=== PATIENT | female | born 1985 | race Caucasian/White ===

== ENCOUNTER 2017-02-10 13:57 | Emergency (ER) | payer OTHER ==
[~2017-02-10] VITALS: Ht 165.1 cm; Wt 62.1 kg
[~2017-02-10 13:57] MED LIST: ABILIFY5 MG PO; ACETAMINOPHEN500 MG PO; BENADRYL25 MG PO; BENTYL10 MG PO; CIPRO500 MG PO; DAILY VALUE1 EACH PO; DONNATAL1 TABLET PO; FIORICET WI1 CAPSULE PO; FLEXERIL5 MG PO; IMITREX50 MG PO; KEFLEX500 MG PO; KEPPRA; KEPPRA500 MG PO; Keppra PO; LAMICTAL25 MG PO; LEVETIRACETAM500 MG PO; Levaquin PO; MOTRIN600 MG PO; MULTI-VITAMIN1 EAC3 PO; NAPROXEN500 MG PO; NOHOMEMEDS; PERCOCET 5/31 TABLET PO; PROMETHAZINE HC25 M1 PO; PYRIDIUM200 MG PO; RANITIDINE HCL300 MG PO; STRATTERA40 MG PO; STRATTERA60 MG; TESSALON200 MG PO; VICODIN,LORT1 TABLET PO; VISTARIL50 MG PO; ZOFRAN4 MG PO; ZYPREXA10 MG PO
[2017-02-10 14:25] LABS: POINT-OF-CARE METER ID UU13113778
[2017-02-10 15:16] LABS: MCH 28.5 PG (29.0-34.0); MCHC 32.1 G/DL (30.0-36.0); MCV 88.8 FL (83-99); MEAN PLAT.VOLUME 10.4 uM^3 (9.5-12.4); PLATELET COUNT 229 K/uL (156-360); RBC DIS.WIDTH-CV 12.5 % (11.8-14.6); RBC DIS.WIDTH-SD 41.1 % (39-53); RED BLOOD COUNT 4.73 M/uL (3.80-5.20); WHITE BLOOD COUNT 12.6 K/uL (4.1-10.2)
[2017-02-10 15:28] LABS: CHLORIDE 106 mEq/L (99-109); POTASSIUM 3.9 mEq/L (3.7-5.4); SODIUM 140 mEq/L (136-147)
[2017-02-10 15:30] LABS: GLUCOSE 203 mg/dL (70-99)
[2017-02-10 15:31] LABS: ANION GAP 14 MEQ/L (2-14)
[2017-02-10 15:32] LABS: TOTAL BILIRUBIN 0.9 mg/dL (0.0-1.0)
[2017-02-10 15:33] LABS: ALKALINE PHOSPHATASE 60 IU/L (3-129)
[2017-02-10 15:34] LABS: GFR ESTIMATE (CALCULATED) > 59 mL/min/
[2017-02-10 15:35] LABS: UREA NITROGEN (BUN) 9 mg/dL (9-23)
[2017-02-10 15:43] LABS: QUANTITATIVE HCG < 4.0 MIU/ML
[2017-02-10] MEDS ORDERED: IMITREX25 MG PO (17:04)
[2017-02-10] MEDS ORDERED: REGLAN10 MG PO (17:04)
[2017-02-10 17:05] LABS: ADD MIUA? NO; BILIRUBIN NEGATIVE; BLOOD NEGATIVE; COLOR YELLOW ((YELLOW)); GLUCOSE (STRIP) >=500; KETONES 80; LEUKOCYTES NEGATIVE; NITRITE NEGATIVE; PROTEIN (STRIP) 30; SPECIFIC GRAVITY 1.018 (1.000-1.030); UCUL ADDED? NO; UROBILINOGEN 0.2 MG/DL (0.2-1.0)
[2017-02-10 17:26] LABS: AMPHETAMINE NEGATIVE (500 ng/mL); BARBITURATES NEGATIVE (200 ng/mL); BENZODIAZEPINES NEGATIVE (150 ng/mL); COCAINE NEGATIVE (150 ng/mL); INTERNAL CONTROLS VALID? YES; METHADONE NEGATIVE (200 ng/mL); METHAMPHETAMINE NEGATIVE (500 ng/mL); OPIATES (MORPHINE) NEGATIVE (100 ng/mL); OXYCODONE NEGATIVE (100 ng/mL); PHENCYCLIDINE NEGATIVE (25 ng/mL); PROPOXYPHENE NEGATIVE (300 ng/mL); THC CANNABINOIDS PRESUMPTIVE POSITIVE (50 ng/mL); TRICYCLIC ANTIDEPRESSANTS NEGATIVE (300 ng/mL)
[2017-02-10 17:27] LABS: ADD MEDTOX COMMENT Y
[2017-02-10 18:30] VITALS: BP 138/79
== END 2017-02-10 18:49 | disposition home or self-care (01) ==
LOC: EME 13:57
PROVIDERS: Emergency Medicine
DX: G43.909 Migraine, unspecified, not intractable, without status migrainosus (principal); R56.9 Unspecified convulsions; F12.90 Cannabis use, unspecified, uncomplicated; F17.200 Nicotine dependence, unspecified, uncomplicated
CPT/HCPCS: 80053; 81003; 82948; 84702; 84999; 85027; 99281; 99285; J1630; J3030; J7030

== ENCOUNTER 2017-04-11 11:59 | Emergency (ER) | payer OTHER ==
[~2017-04-11] VITALS: Ht 165.1 cm; Wt 50.0 kg
[~2017-04-11 11:59] MED LIST changes: +IMITREX25 MG PO; +REGLAN10 MG PO
[2017-04-11 12:58] LABS: EOSINOPHIL (%) 0 % (0-5); HEMATOCRIT 41.7 % (36.0-46.0); IMMATURE GRANULOCYTE (%) 0.4 % (0.0-0.7); IMMATURE GRANULOCYTE COUNT 0.1 K/uL; INSTRUMENT ABS NEUTROPHIL CT 12.4 K/uL; LYMPHOCYTE COUNT 0.9 K/uL (1.0-2.8); MCH 28.8 PG (29.0-34.0); MCHC 33.6 G/DL (30.0-36.0); MCV 85.8 FL (83-99); MEAN PLAT.VOLUME 10.4 uM^3 (9.5-12.4); MONOCYTE COUNT 0.6 K/uL (0-0.8); NEUTROPHIL COUNT 12.4 K/uL (1.8-6.4); PLATELET COUNT 215 K/uL (156-360); RBC DIS.WIDTH-CV 12.1 % (11.8-14.6); RBC DIS.WIDTH-SD 38.2 % (39-53); RED BLOOD COUNT 4.86 M/uL (3.80-5.20); WHITE BLOOD COUNT 13.9 K/uL (4.1-10.2)
[2017-04-11 13:02] LABS: CHLORIDE 108 mEq/L (99-109); POTASSIUM 3.5 mEq/L (3.7-5.4); SODIUM 139 mEq/L (136-147)
[2017-04-11 13:05] LABS: GLUCOSE 170 mg/dL (70-99)
[2017-04-11 13:06] LABS: ANION GAP 16 MEQ/L (2-14)
[2017-04-11 13:07] LABS: TOTAL BILIRUBIN 0.7 mg/dL (0.0-1.0)
[2017-04-11 13:08] LABS: ALKALINE PHOSPHATASE 54 IU/L (3-129); GFR ESTIMATE (CALCULATED) > 59 mL/min/
[2017-04-11 13:09] LABS: UREA NITROGEN (BUN) 11 mg/dL (9-23)
[2017-04-11 13:14] LABS: D-DIMER ELISA 0.28 mg/L FEU (< 0.57)
[2017-04-11 13:17] LABS: TROP-I INTERPRETATION NEGATIVE; TROPONIN-I < 0.01 ng/mL (0.0-0.30)
[2017-04-11 13:18] LABS: QUANTITATIVE HCG < 4.0 MIU/ML
[2017-04-11] MEDS ORDERED: MOTRIN800 MG PO (16:35)
[2017-04-11] MEDS ORDERED: KEPPRA500 MG PO (16:35)
[2017-04-11] MEDS ORDERED: PROMETHAZINE HC25 M1 PO (17:07)
[2017-04-11 17:21] VITALS: BP 126/88
== END 2017-04-11 17:32 | disposition home or self-care (01) ==
LOC: EME 11:59
PROVIDERS: Physician Assistant
DX: G40.909 Epilepsy, unspecified, not intractable, without status epilepticus (principal); G43.909 Migraine, unspecified, not intractable, without status migrainosus; S09.90XA Unspecified injury of head, initial encounter; R07.89 Other chest pain; F41.9 Anxiety disorder, unspecified; W20.8XXA Other cause of strike by thrown, projected or falling object, initial encounter; T42.6X6A Underdosing of other antiepileptic and sedative-hypnotic drugs, initial encounter; Z91.128 Patient's intentional underdosing of medication regimen for other reason
CPT/HCPCS: 70450; 71010; 80053; 81003; 84484; 84702; 85025; 85379; 93005; 99281; 99285; J1885; J1953; J2060; J2270; J2405; J2550; J7030; J7050